=== PATIENT | female | born 1940 | race Caucasian/White ===

== ENCOUNTER → 2020-06-06 12:31 | Outpatient (CLI) | payer MEDICARE, SELFPAY ==
--- NOTE | ~2020-06-06 | DEXA_ITS ---
Bone Density Report Name: Maria Luz Hernandez Age: 80 Sex: Female Ethnicity: White Date of : 1940 Indication: postmenopausal; screening for osteoporosis; height loss; Referring Provider: Steven Vogel Study: Bone densitometry was performed. Exam Date: June 06, 2020 Accession number: [id number] Bone Density: Region BMD T-score Z-score Classification AP Spine (L1-L4) 0.968 -0.7 2.0 Normal Femoral Neck (Left) 0.667 -1.6 0.7 Osteopenia Total Hip (Left) 0.794 -1.2 0.9 Osteopenia Femoral Neck (Right) 0.646 -1.8 0.5 Osteopenia Total Hip (Right) 0.786 -1.3 0.8 Osteopenia Total Hip Mean 0.790 -1.3 0.9 Osteopenia World Health Organization criteria for BMD impression classify patients as: Normal (T-score at or above -1.0), Osteopenia (T-score between -1.0 and -2.5), or Osteoporosis (T-score at or below -2.5). 10-year Fracture Risk: FRAX not reported because: Treated for osteoporosis Clinical Information Provided by Patient: Is being treated for osteoporosis Has used the following medications: Fosamax (i.e. alendronate), Vitamin D, Calcium, MTV Patient maximum height was 64.5 Menopause Age: 60 Does not regularly consume dairy products Drinks caffeinated beverages Onset of menses at age 13 Number of children 3 Impression: The patient has low bone mass, based on the Right Femoral Neck T-score. Discussion: It is important to ask patients whether they are taking their medications and to encourage continued and appropriate compliance with their osteoporosis therapies to reduce fracture risk. It is also important to review their risk factors and encourage appropriate calcium and vitamin D intakes, exercise, fall prevention and other lifestyle measures. Follow-Up: Consider a repeat BMD and Vertebral Fracture Assessment (VFA) exam in 2 years or sooner if medically necessary, to reassess this patient's status. Reported by: NAVA on 06/06/2020 2:13:00 PM. Reviewed, dictated and finalized at location [facility]
== END ==
DX: N95.8 Other specified menopausal and perimenopausal disorders (principal); M85.852 Other specified disorders of bone density and structure, left thigh; M85.851 Other specified disorders of bone density and structure, right thigh
CPT/HCPCS: 77080

== ENCOUNTER → 2020-08-13 01:32 | Outpatient (CLI) | payer MEDICARE, SELFPAY ==
[2020-08-13 20:12] LABS: SARS-CoV-2 RNA PCR Negative
== END ==
PROVIDERS: Visit Provider Internal Medicine Gastroenterology
DX: Z01.812 Encounter for preprocedural laboratory examination (principal); Z20.822 Contact with and (suspected) exposure to COVID-19
CPT/HCPCS: C9803; U0003; U0005

== ENCOUNTER 2020-08-16 00:47 | Day surgery (SDC) | payer MEDICARE, SELFPAY ==
[2020-08-06 09:46] VITALS: BMI 23.4
--- NOTE | 2020-08-15 09:54 | WPDANESEPPF ---
Anes - Initial Pre Proc Eval Procedure: Operation Date: 08/16/20 07:30 Proposed Procedures p Screening Colonoscopy - Gamaliel Howell DO Date/Time: 08/15/20 09:54 Surgeon: Gamaliel Howell DO Pre Op Diagnosis: Neoplasm Screening Patient Data Age: 80 Gender: F Height: 1.63 m Weight: 62 kg Allergies Allergy/AdvReac Type Severity Reaction Status Date / Time No Known Allergies Allergy Verified 08/16/20 06:21 Home Medications Medication Instructions Recorded Confirmed Type alendronate 70 mg PO WEEKLY 08/06/20 08/06/20 History bimatoprost [Lumigan] 1 drp EACH EYE HS 08/06/20 08/06/20 History calcium carbonate-vitamin D3 2 tablet PO DAILY 08/06/20 08/06/20 History [Calcium with Vitamin D] olmesartan-hydrochlorothiazide 1 tablet PO DAILY 08/06/20 08/06/20 History Patient hx anesthesia problems: none Family hx anesthesia problems: none [facility] Past Medical History Medical History (Updated 08/15/20 @ 09:55 by Josiah Parrish MD) HTN (hypertension) Social History Social History Smoking status: Never smoker Alcohol intake: current Drinks per week: 7 Alcohol use details: WINE Substance use: never Substance use type: does not use Living arrangements: alone Spiritual care concerns: No Anes - Eval Final PreProcedure Day of Procedure 08/15/20 09:54 Patient weight: normal Heart: regular rate and rhythm Lungs: clear to auscultation and normal air movement Airway: Mallampati scale class II Neurological: alert and oriented Last oral intake: >/= 8 hours ASA classification: II Emergent: no Anesthetic plan: proceed Anesthesia type and monitoring: general GIVS Informed Consent: The patient's anesthetic plan and its attendant risks and benefits were discussed with the patient/family/POA. Questions were solicited and answers provided to the satisfaction of the patient/family/POA.
[2020-08-16 06:23] VITALS: BP 105/59; PULSE 78; RESP 20; TEMP 36.2; O2SAT 99; BMI 23.9
[2020-08-16] MEDS: LACTATED RINGERS 1,000 ML 150 ML IV CONT (06:35)
--- NOTE | 2020-08-16 07:29 | WPDGICN ---
GI Consult Note Consult date/time: 08/16/20 07:29 HPI: Reason for visit is colonoscopy. This very pleasant lady is seen in consultation request the primary physician. Impression: Screening and surveillance colonoscopy. The patient's history adenomatous colon polyps. Osteoporosis. Hypertension. Glaucoma. Graves disease. Recommendation: Colonoscopy. History: This very pleasant lady has a history of colon polyps. Her GI review systems negative. She is here for screening and surveillance. Physical examination: General: very pleasant patient in no acute distress. HEENT: Head was normocephalic sclerae is clear mouth without masses neck was supple. Heart: Rate rhythm regular without S3 or S4. Lungs: CTA. Abdomen: Soft with no guarding or rigidity. Bowel sounds were active. Neurologic: Cranial nerves 2 through 12 intact. No focal defects. No clonus. Musculoskeletal system: Revealed no joint tenderness or swelling no muscle atrophy. Extremities: Reveal no significant edema. Skin: Warm and dry with normal turgor. Mental status: intact. Patient is alert and oriented. Review of Systems Review of Systems: All systems reviewed & are unremarkable except as noted in HPI and below PMFSH Past Medical History Medical History (Updated 08/16/20 @ 07:29 by Gamaliel Howell DO) Adenomatous colon polyp Glaucoma Graves disease HTN (hypertension) Osteoporosis Social History Social History Smoking status: Never smoker Alcohol intake: current Drinks per week: 7 Alcohol use details: WINE Substance use: never Substance use type: does not use Living arrangements: alone Spiritual care concerns: No Meds Home Medications and Allergies Home Medications Medication Instructions Recorded Confirmed Type alendronate 70 mg PO WEEKLY 08/06/20 08/06/20 History bimatoprost [Lumigan] 1 drp EACH EYE HS 08/06/20 08/06/20 History calcium carbonate-vitamin D3 2 tablet PO DAILY 08/06/20 08/06/20 History [Calcium with Vitamin D] olmesartan-hydrochlorothiazide 1 tablet PO DAILY 08/06/20 08/06/20 History Allergies Allergy/AdvReac Type Severity Reaction Status Date / Time No Known Allergies Allergy Verified 08/16/20 06:21 Vital Signs Vital Signs - 24 hr 08/16/20 06:23 Temperature 36.2 C L Pulse Rate 78 Respiratory Rate 20 Blood Pressure 105/59 L Pulse Oximetry 99
[2020-08-16 07:54] VITALS: BP 100/55; PULSE 63; RESP 14; O2SAT 100
[2020-08-16 08:04] VITALS: BP 117/65; PULSE 68; RESP 16; O2SAT 99
[2020-08-16 08:14] VITALS: BP 122/65; PULSE 68; RESP 16; O2SAT 99
== END 2020-08-16 08:35 | disposition home or self-care (01) ==
PROVIDERS: Visit Provider Internal Medicine Gastroenterology
PROC: 0DJD8ZZ Inspection of Lower Intestinal Tract, Via Natural or Artificial Opening Endoscopic (ICD-10-PCS; CPT 45378; principal; 2020-08-16 07:30)
DX: Z12.11 Encounter for screening for malignant neoplasm of colon (principal); K57.30 Diverticulosis of large intestine without perforation or abscess without bleeding; I10 Essential (primary) hypertension; E05.00 Thyrotoxicosis with diffuse goiter without thyrotoxic crisis or storm; M81.0 Age-related osteoporosis without current pathological fracture; H40.9 Unspecified glaucoma
CPT/HCPCS: G0105; C9803; J2704; J7120; U0003; U0005

== ENCOUNTER 2021-05-18 09:34 | Emergency (ER) | payer MEDICARE, SELFPAY ==
[2021-05-18 10:05] VITALS: BP 121/58; PULSE 83; RESP 18; TEMP 36.3; O2SAT 98
[2021-05-18 12:26] VITALS: BP 120/62; PULSE 83; RESP 20; O2SAT 98
[2021-05-18] MEDS: SODIUM CHLORIDE 0.9% IV 1,000 ML 999 ML IV CONT (12:40)
[2021-05-18] MEDS: ONDANSETRON INJ 4 MG/2 ML VIAL IV PUSH (12:41)
[2021-05-18 12:43] LABS: Basophils Absolute Auto 0.1 K/mm3 (0.0-0.1); Basophils Percent Auto 0.5 % (0.2-1.2); Eosinophils Percent Auto 0.4 % (0-4.4); Hematocrit 42.4 % (37.0-47.0); Immature Granulocyte Absolute 0.02 K/mm3 (0.00-0.031); Immature Granulocyte Percent A 0.2 % (0-0.5); Lymphocytes Absolute Auto 1.01 K/mm3 (0.9-3.2); Lymphocytes Percent Auto 10.6 % (18.3-44.2); Mean Corpuscular Hemoglobin 32.7 pg (26-34); Mean Corpuscular Volume 99.1 fl (80-100); Mean Platelet Volume 8.9 fl (7.4-10.4); Monocytes Absolute Auto 0.8 K/mm3 (0.1-0.6); Monocytes Percent Auto 8.8 % (2.6-8.5); Neutrophils Absolute Auto 7.6 K/mm3 (1.3-6.7); Neutrophils Percent Auto 79.5 % (45.5-73.1); Platelet Count Result 278 k/mm3 (150-375); Red Blood Count 4.28 M/mm3 (4.2-5.4); Red Cell Distribution Width 11.9 % (11.5-14.5); White Blood Count 9.5 K/mm3 (4.5-10.0)
[2021-05-18 12:46] LABS: Add Urine Microscopic? NO; Appearance Urine Clear (Clear); Bilirubin Urine Negative (Negative); Blood Urine Negative (Negative); Color Urine Yellow (Yellow); Glucose Urine UA Negative (Negative); Ketones Urine Negative (Negative); Leukocyte Esterase Ur Negative LEU/UL (Negative); Nitrate Urine Negative (Negative); Protein Urine Negative (Negative); Specific Grav Ur 1.017 (1.001-1.035); Urobilinogen Urine Negative mg/dL (<2.0)
[2021-05-18 12:53] LABS: Alanine Aminotransferase 18 U/L (4-35); Albumin Level 4.7 g/dL (3.5-5.1); Alkaline Phosphatase 62 U/L (38-126); Anion Gap 8 mmol/L (8-16); Aspartate Amino Transferase 31 U/L (14-36); Bilirubin,Total 0.7 mg/dL (0.2-1.3); Blood Urea Nitrogen 18 mg/dL (7-17); Calcium 9.9 mg/dL (8.4-10.2); Carbon Dioxide 29 mmol/L (22-30); Chloride 93 mmol/L (98-107); Estimated CRCL calculation 41 ml/min; Estimated Glomerular Filt Rate > 60; Glucose 121 mg/dL (65-110); Lipase 69 U/L (23-300); Potassium 3.7 mmol/L (3.4-5.0); Sodium 130 mmol/L (137-145)
--- NOTE | 2021-05-18 14:15 | ED.NAVMDI ---
HPI - Nausea/Vomiting/Diarrhea General Chief complaint: Nausea/Vomiting/Diarrhea Stated complaint: Diarrhea since thursday Time Seen by Provider: 05/18/21 12:13 History of Present Illness HPI Narrative: Patient is an 81-year-old female who presents ER with concerns for dehydration. Reports she has been having diarrhea for the last 4 days. No known sick contacts. No blood in stool. No dizziness or loss of consciousness. Denies fevers chills or sweats. No alleviating factors. Has not been on antibiotics. Related Data Home Medications Medication Instructions Recorded Confirmed alendronate 70 mg PO WEEKLY 08/06/20 11/15/20 bimatoprost [Lumigan] 1 drp EACH EYE HS 08/06/20 11/15/20 calcium carbonate-vitamin D3 2 tablet PO DAILY 08/06/20 11/15/20 [Calcium with Vitamin D] olmesartan-hydrochlorothiazide 1 tablet PO DAILY 08/06/20 11/15/20 Allergies Allergy/AdvReac Type Severity Reaction Status Date / Time No Known Allergies Allergy Verified 05/18/21 12:25 Review of Systems Review of Systems: All systems reviewed & are unremarkable except as noted in HPI and below Constitutional: Constitutional: Denies chills, Denies fever(s) and Denies weakness ENT: Denies nasal congestion and Denies sore throat Cardiovascular: Cardiovascular: Denies chest pain and Denies radiating jaw, neck or arm pain Gastrointestinal: Gastrointestinal: Reports abdominal pain and Reports diarrhea Musculoskeletal: Musculoskeletal: Denies back pain and Denies muscle cramps PMFSH Past Medical History Medical History (Updated 05/18/21 @ 14:22 by Trenton Boss MD) Adenomatous colon polyp Glaucoma Graves disease HTN (hypertension) Osteoporosis Social History Social History Alcohol intake: current Drinks per week: 7 Alcohol use details: WINE Substance use: never Substance use type: does not use Spiritual care concerns: No Exam Narrative: GENERAL: Well-appearing, well-nourished, and in no acute distress. HEAD: Normocephalic, atraumatic. CHEST: Clear to auscultation. No respiratory distress. HEART: Regular rate and rhythm. Normal peripheral pulses. ABDOMEN: Soft, nontender, nondistended. EXTREMITIES: Normal range of motion. No edema. SKIN: Warm, dry, no rash. NEURO: Alert and oriented x3. PSYCH: Normal mood and affect. Course Course Emergency Course: Patient hydrated and given Zofran. Informed results. Discharge home. Vital Signs Vital signs: Vital Signs Temperature 97.4 F L 05/18/21 10:05 Pulse Rate 83 05/18/21 10:05 Respiratory Rate 18 05/18/21 10:05 Blood Pressure 121/58 L 05/18/21 10:05 Pulse Oximetry 98 05/18/21 10:05 Temperature 97.4 F L 05/18/21 10:05 Pulse Rate 83 05/18/21 12:26 Respiratory Rate 20 05/18/21 12:26 Blood Pressure 120/62 05/18/21 12:26 Pulse Oximetry 98 05/18/21 12:26 MDM - Nausea/Vomiting/Diarrhea Lab Data Result diagrams: 05/18/21 12:32 05/18/21 12:32 Labs: Lab Results 05/18/21 05/18/21 05/18/21 Range/Units 12:32 12:32 12:32 WBC 9.5 (4.5-10.0) K/mm3 RBC 4.28 (4.2-5.4) M/mm3 Hgb 14.0 (12.0-15.0) g/dL Hct 42.4 (37.0-47.0) % MCV 99.1 (80-100) fl MCH 32.7 (26-34) pg MCHC 33.0 (32-36) g/dl RDW 11.9 (11.5-14.5) % Plt Count 278 (150-375) k/mm3 MPV 8.9 (7.4-10.4) fl Immature Gran % (Auto) 0.2 (0-0.5) % Neut % (Auto) 79.5 H (45.5-73.1) % Lymph % (Auto) 10.6 L (18.3-44.2) % [place] % (Auto) 8.8 H (2.6-8.5) % Eos % (Auto) 0.4 (0-4.4) % Baso % (Auto) 0.5 (0.2-1.2) % Lymph # (Auto) 1.01 (0.9-3.2) K/mm3 [place] # (Auto) 0.8 H (0.1-0.6) K/mm3 Eos # (Auto) 0.0 (0-0.3) K/mm3 Baso # (Auto) 0.1 (0.0-0.1) K/mm3 Abs Immat Gran (auto) 0.02 (0.00-0.031) K/mm3 Absolute Neuts (auto) 7.6 H (1.3-6.7) K/mm3 Absolute Nucleated RBC 0.0 (0.0-0.012) K/mm3 Nucleated RBC
[2021-05-18 14:46] VITALS: BP 120/67; PULSE 74; RESP 18; O2SAT 97
== END 2021-05-18 14:48 | disposition home or self-care (01) ==
PROVIDERS: Emergency Provider Emergency Medicine
DX: K52.9 Noninfective gastroenteritis and colitis, unspecified (principal); I10 Essential (primary) hypertension; E05.00 Thyrotoxicosis with diffuse goiter without thyrotoxic crisis or storm
CPT/HCPCS: 36415; 80053; 81003; 83690; 85025; 96361; 96374; 99284; J2405; J7030

== ENCOUNTER 2022-10-31 09:23 | Emergency (ER) | payer MEDICARE, SELFPAY ==
--- NOTE | ~2022-10-31 | XR_ITS ---
XR hand LT min 3V 10/31/2022 10:11 Indication: Laceration. Procedure: 3 views left hand Comparison: No prior studies for comparison. Findings: There is polyarticular osteoarthritis of the interphalangeal joints as well as the triscaph e, first carpal metacarpal and first interphalangeal joints. No fracture or traumatic malalignment. N o foreign bodies. Impression: 1: Mild-moderate polyarticular osteoarthritis. Reviewed, dictated and finalized at location [] Impression: 1: Mild-moderate polyarticular osteoarthritis.
--- NOTE | ~2022-10-31 | CT_ITS ---
EXAMINATION: CT brain wo con DATE: 10/31/2022 10:29 INDICATION: Status post fall. TECHNIQUE: Computed tomography (CT) of the head was performed without intravenous contrast. The dose- length product was 529.67 mGy-cm. Automated exposure control and iterative reconstruction technique w ere employed. COMPARISON: None FINDINGS: Mild generalized atrophy. Small chronic right lacunar infarction. No ventriculomegaly or mi dline shift. Basilar cisterns are patent. There is intracranial atherosclerosis. No acute infarction, hemorrhage, mass or mass effect. There is an air-fluid level in the sphenoid sinus. Mastoids are pne umatized. No depressed skull fractures. IMPRESSION: 1. No acute intracranial abnormality. 2: Chronic right lacunar infarction. 3: Mild sphenoid sinusitis. Reviewed, dictated and finalized at location []
[2022-10-31 09:29] VITALS: BP 145/73; PULSE 78; RESP 16; TEMP 36.5; O2SAT 96
[2022-10-31 09:43] VITALS: BP 146/71; PULSE 82; RESP 18; O2SAT 97
--- NOTE | 2022-10-31 09:52 | ED.WOUNDLAC ---
HPI - Wound/Laceration General Chief Complaint: Wound/Laceration <Cherelle Hu PA-C - Last Filed: 10/31/22 13:24> Stated Complaint: L THUMB INJURY <JULISSA Chaparro Last Filed: 10/31/22 13:24> Time Seen by Provider: 10/31/22 09:40 <JULISSA Chaparro Last Filed: 10/31/22 13:24> History of Present Illness HPI narrative: 82-year-old female reports for evaluation of a laceration that occurred to her left thumb prior to arrival. Patient states she was standing on a chair, the chair tipped and she fell off of it, resulting in a laceration to her left thumb. Patient does states she hit her head on what she thinks was a toolbox and reports a lump to the back of her head. Denies LOC, focal numbness or weakness, vision changes, chest pain or shortness of breath, neck pain, back pain. Denies other injuries acquired to the fall. She is not on blood thinners. <JULISSA Chaparro Last Filed: 10/31/22 13:24> Related Data Home Medications: Home Medications Medication Instructions Recorded Confirmed alendronate 70 mg tablet 70 mg PO WEEKLY 08/06/20 11/15/20 bimatoprost 0.01 % eye drops 1 drp EACH EYE HS 08/06/20 11/15/20 (Lumigan) calcium carbonate 600 mg-vitamin 2 tablet PO DAILY 08/06/20 11/15/20 D3 10 mcg (400 unit) tablet (Calcium with Vitamin D) olmesartan 20 1 tablet PO DAILY 08/06/20 11/15/20 mg-hydrochlorothiazide 12.5 mg tablet <JULISSA Chaparro Last Filed: 10/31/22 13:24> Allergies/Adverse Reactions: Allergies Allergy/AdvReac Type Severity Reaction Status Date / Time No Known Allergies Allergy Verified 10/31/22 09:46 <JULISSA Chaparro Last Filed: 10/31/22 13:24> Review of Systems Review of Systems: CONSTITUTIONAL: Denies fever, chills EYES: Denies visual changes, redness, or discharge. ENT: Denies rhinorrhea, congestion, sore throat, or otalgia. CARDIOVASCULAR: Denies chest pain, palpitations, or edema. RESPIRATORY: Denies cough or dyspnea. GASTROINTESTINAL: Denies abdominal pain, nausea, vomiting, or diarrhea. GENITOURINARY: Denies dysuria or hematuria. SKIN: See HPI MUSCULOSKELETAL: Denies back pain, joint pain, or myalgia. NEUROLOGIC: See HPI PSYCHIATRIC: Denies anxiety or depression. <Cherelle Hu PA-C - Last Filed: 10/31/22 13:24> [facility] Past Medical History Medical History: Medical History Adenomatous colon polyp Glaucoma Graves disease HTN (hypertension) Osteoporosis <Cherelle Hu PA-C - Last Filed: 10/31/22 13:24> Social History Social History: Social History Alcohol intake: current Drinks per week: 7 Alcohol use details: WINE Substance use: never Substance use type: does not use Living arrangements: alone Spiritual care concerns: No <Cherelle Hu PA-C - Last Filed: 10/31/22 13:24> Exam Narrative: GENERAL: Well-appearing, in no acute distress. HEAD: 2 cm area of swelling to the occiput without overlying lacerations or abrasions. EYES: PERRLA, EOMI ENT: Nares clear. Mucous membranes moist. Oropharynx without tonsillar hypertrophy exudate or other lesions. NECK: Supple. No cervical spinous tenderness, step-offs or deformities. Full range of motion of neck. CHEST: No respiratory distress. Clear to auscultation, no adventitious breath sounds. HEART: Regular rate and rhythm. No murmur heard. Normal peripheral pulses. ABDOMEN: Soft, nontender, normal active bowel sounds. EXTREMITIES: Normal range of motion. No edema. SKIN: 2 cm flap laceration to the distal radial aspect of the thumb extending into the nail fold, no nail involvement. Bleeding controlled. No deep tissues or foreign bodies was visualized. Cap refill less than 2. Radial pulse 2+. Sensation intact. Full range of motion of finger. NEURO: No focal deficits. Alert and orien
[2022-10-31] MEDS: TETANUS,DIPHTHERIA,AC PERTUSSIS ADULT (0.5 ML) BOOSTRIX IM (10:01)
[2022-10-31 11:19] VITALS: BP 162/73; PULSE 88; RESP 16; O2SAT 98
[2022-10-31 12:20] VITALS: BP 152/79; PULSE 73; RESP 18; O2SAT 97
== END 2022-10-31 12:22 | disposition home or self-care (01) ==
PROVIDERS: Emergency Provider Physician Assistant
DX: S61.012A Laceration without foreign body of left thumb without damage to nail, initial encounter (principal); S09.90XA Unspecified injury of head, initial encounter; Z23 Encounter for immunization; I10 Essential (primary) hypertension; E05.00 Thyrotoxicosis with diffuse goiter without thyrotoxic crisis or storm; H40.9 Unspecified glaucoma; M81.0 Age-related osteoporosis without current pathological fracture; Z86.010 Personal history of colon polyps; M18.9 Osteoarthritis of first carpometacarpal joint, unspecified; M19.042 Primary osteoarthritis, left hand; M19.032 Primary osteoarthritis, left wrist; J32.3 Chronic sphenoidal sinusitis; W07.XXXA Fall from chair, initial encounter
CPT/HCPCS: 12001; 70450; 73130; 90471; 90715; 99284

== ENCOUNTER 2023-09-04 10:53 | Outpatient (CLI) | payer MEDICARE, SELFPAY ==
--- NOTE | ~2023-09-04 | DEXA_ITS ---
Bone Density Report Name: EMILI SILVA Age: 83 Sex: Female Ethnicity: White Date of : 1940 Indication: osteopenia; parental hip fracture; height loss; prior fracture; postmenopausal Referring Provider: SRUTHI, ADELSO Read Study: Bone densitometry was performed. Exam Date: September 04, 2023 Accession number: [id number] Bone Density: Region BMD T-score Z-score Classification AP Spine (L1, L2) 0.872 -1.0 1.7 Normal Femoral Neck (Left) 0.658 -1.7 0.7 Osteopenia Total Hip (Left) 0.766 -1.4 0.8 Osteopenia Femoral Neck (Right) 0.626 -2.0 0.4 Osteopenia Total Hip (Right) 0.751 -1.6 0.7 Osteopenia Total Hip Mean 0.759 -1.5 0.8 Osteopenia World Health Organization criteria for BMD impression classify patients as: Normal (T-score at or above -1.0), Osteopenia (T-score between -1.0 and -2.5), or Osteoporosis (T-score at or below -2.5). 10-year Fracture Risk(1): Major Osteoporotic Fracture 38% Hip Fracture 24% Reported Risk Factors: [place] (), Neck BMD=0.626, BMI=25.5, previous fracture, parental fracture (1) FRAX(R) Version 3.08. Fracture probability calculated for an untreated patient. Fracture probability may be lower if the patient has received treatment. Previous Exams: Region Exam Age BMD T-score BMD Change BMD Change Date g/cm2 vs Baseline vs Previous AP Spine(L1, L2) 09/04/2023 83 0.872 -1.0 0.009 0.009 06/06/2020 80 0.864 -1.0 Total Hip(Left) 09/04/2023 83 0.766 -1.4 -0.029* -0.029* 06/06/2020 80 0.794 -1.2 Total Hip(Right) 09/04/2023 83 0.751 -1.6 -0.035* -0.035* 06/06/2020 80 0.786 -1.3 *Denotes significance at 95% confidence level, LSC for AP Spine = 0.022 g/cm2, LSC for Total Hip = 0.027 g/cm2 Clinical Information Provided by Patient: Has had a low trauma fracture Parent has had a hip fracture Has used the following medications: Vitamin D, Calcium Patient maximum height was 64.0 Menopause Age: 60 Does not regularly consume dairy products Drinks caffeinated beverages Onset of menses at age 13 Number of children 3 Impression: The patient has low bone mass, based on the Right Femoral Neck T-score. The patient has an estimated ten-year risk of hip fracture of 24% and an estimated ten-year risk of major fracture of 38%, based on the WHO FRAX algorithm. The patient has risk factors, including: parental hip fracture, previous fracture. The BMD for the Total Hip(Left) decreased, changing by -0.029 since the last DXA exam. The BMD for the Total Hip(Right) decreased, changing by -0.035 since the last DXA exam. Discussion: BONE DENSITY IS LOW AT ONE OR MORE SKELETAL SITES. THE PATIENT'S BMD AND CLINICAL RISK FACTORS CONTRIBUTE TO THIS PATIENT'S HIGH RISK OF FRACTURE. This patient's lowest T-score is low at one or more skeletal sites. It meets the World Health Organization's (WHO) criteria for ?low bone mass? (T-score between -1.0 and -2.5). The patient's 10-year risk of hip fracture and 10 year risk of a major osteoporotic fracture as calculated by FRAX exceeds the threshold where pharmacological therapy is recommended by the National Osteoporosis Foundation (NOF). However, all treatment decisions require clinical judgment and consideration of individual patient factors, including patient preferences, comorbidities, previous drug use, risk factors not captured in the FRAX model (e.g., frailty, falls, vitamin D deficiency, increased bone turnover, interval significant decline in bone density) and possible under or overestimation of fracture risk by FRAX. The patient should follow a healthful lifestyle (good nutrition with adequate calcium and vitamin D, and appropriate weight-bearing exercise). Follow-Up: Consider a repeat BMD and Vertebral Fracture Assessment (VFA) exam in 2 years or sooner if medically necessary, to reassess this patient's status. Reported by: JOHNNY on 09/04/2023 11:40:00 AM. Reviewed, dictated and finalized at location A. JULIA
--- NOTE | ~2023-09-04 | MM_ITS ---
EXAMINATION: MM screening jorge BI w nazia HISTORY: Screening TECHNIQUE: Craniocaudal and mediolateral oblique 3-D tomosynthesis images were obtained and synthetic 2-D images were generated. CAD analysis was submitted and interpreted. COMPARISON: No prior mammogram is available for comparison at this institution. BREAST PARENCHYMAL COMPOSITION: Not dense: There are scattered areas of fibroglandular density. FINDINGS: There are nodular asymmetries which are high density in the upper outer quadrant of the rig ht breast with adjacent tissue marker. There are no suspicious masses, calcifications or architectura l distortion in the left breast to suggest malignancy. IMPRESSION: 1. High density nodular asymmetries, upper outer quadrant of the right breast posteriorly. 2. Correlation with prior outside mammograms recommended. BI-RADS CATEGORY 0 - INCOMPLETE STUDY, NEED ADDITIONAL IMAGING EVALUATION. Reviewed, dictated and finalized at location B. IMPRESSION: 1. High density nodular asymmetries, upper outer quadrant of the right breast p osteriorly. 2. Correlation with prior outside mammograms recommended. BI-RADS CATEGORY 0 - INCOMPLETE STUDY, NEED ADDITIONAL IMAGING EVALUATION.
== END 2023-09-04 10:54 ==
PROVIDERS: PCP Family Medicine Sports Medicine; Visit Provider Family Medicine Sports Medicine
DX: Z12.31 Encounter for screening mammogram for malignant neoplasm of breast (principal); M81.0 Age-related osteoporosis without current pathological fracture; R92.8 Other abnormal and inconclusive findings on diagnostic imaging of breast; M85.852 Other specified disorders of bone density and structure, left thigh; M85.851 Other specified disorders of bone density and structure, right thigh
CPT/HCPCS: 77063; 77067; 77080

== ENCOUNTER 2024-09-05 11:06 | Outpatient (CLI) | payer MEDICARE, SELFPAY ==
--- NOTE | ~2024-09-05 | MM_ITS ---
EXAMINATION: MM screening jorge BI w nazia HISTORY: Screening TECHNIQUE: Craniocaudal and mediolateral oblique 3-D tomosynthesis images were obtained and synthetic 2-D images were generated. CAD analysis was submitted and interpreted. COMPARISON: 09/04/2023 and dating back to 11/14/2020 BREAST PARENCHYMAL COMPOSITION: There are scattered areas of fibroglandular density. FINDINGS: Punctate calcifications detected bilaterally, vascular in origin and benign in appearance. Microclip within the upper outer quadrant of the right breast, consistent with patient's history of p revious percutaneous biopsy, some 20 years earlier, yielding benign results. Stable parenchymal pattern without suspicious microcalcifications, architectural distortion, discrete masses or significant asymmetry. IMPRESSION: 1. No mammographic evidence of malignancy. 2. Follow-up as per ACR/ACS/SBI guidelines is suggested. BI-RADS Category 2: Benign finding(s). Reviewed, dictated and finalized at location A.
== END 2024-09-05 11:07 | disposition home or self-care (01) ==
LOC: MICIMG 11:11
PROVIDERS: PCP Family Medicine; Visit Provider Family Medicine
DX: Z12.31 Encounter for screening mammogram for malignant neoplasm of breast (principal)
CPT/HCPCS: 77063; 77067